=== PATIENT | male | born 1990 | race Caucasian/White ===

== ENCOUNTER 2021-05-14 11:00 | Emergency (ER) | payer OTHER, SELFPAY ==
--- NOTE | ~2021-05-14 | XR_ITS ---
EXAMINATION: XR abdomen/kub 1V INDICATION: Hematuria TECHNIQUE: Supine views of the abdomen were obtained on 2 radiographs. COMPARISON: None FINDINGS: There is a 4 mm calcification in the right pelvis which has the appearance of a phlebolith. There is a faint 2 mm calcification in the left pelvis near the expected location of the left ureter ovesicular junction. The bowel gas pattern is normal. The lung bases are clear. There is thoracolumba r levoscoliosis. IMPRESSION: 1. Possible stone in the distal left ureter. Recommend correlation for left flank pain. Reviewed, dictated and finalized at location A. IMPRESSION: 1. Possible stone in the distal left ureter. Recommend correlation for left fla nk pain.
[2021-05-14 11:04] VITALS: BP 124/74; PULSE 68; RESP 16; TEMP 37.2; O2SAT 100
[2021-05-14 11:19] VITALS: BP 124/74; PULSE 68; RESP 16; TEMP 37.2; O2SAT 100
--- NOTE | 2021-05-14 11:42 | ED.MALEGU ---
HPI - Male Genitourinary General Chief complaint: Urogenital-Male Stated complaint: poss uti Time Seen by Provider: 05/14/21 11:25 Source: patient and RN notes reviewed Mode of arrival: ambulatory Limitations: no limitations History of Present Illness HPI Narrative: Patient presents today complaining of waking up this morning with urinary urgency and pain at the tip of the penis intermittently. Patient denies dysuria, frequency, abdominal pain, hematuria. He reports some lower abdominal pain last night, but this is since resolved. He reports some nausea earlier today, but this has since resolved. Denies concerns for sexually transmitted infections. Related Data Allergies Allergy/AdvReac Type Severity Reaction Status Date / Time No Known Allergies Allergy Unknown Verified 05/14/21 11:19 Review of Systems Review of Systems: CONSTITUTIONAL: Denies body aches, fever, chills, or sweats. EYES: Denies visual changes, redness, or discharge. ENT: Denies rhinorrhea, congestion, sore throat, or otalgia. CARDIOVASCULAR: Denies chest pain, palpitations, or edema. RESPIRATORY: Denies cough or dyspnea. GASTROINTESTINAL: Denies abdominal pain, nausea, vomiting, or diarrhea. GENITOURINARY: Denies dysuria or hematuria.+ Urgency, pain at tip of penis SKIN: Denies rash, itching, or wounds. MUSCULOSKELETAL: Denies back pain, joint pain, or myalgia. NEUROLOGIC: Denies headache, numbness, tingling, or weakness. PSYCH: Denies depression or anxiety. PMFSH Comments At time of signature, I have reviewed and agree with nursing past medical, surgical, social and family history unless otherwise noted. Please see nursing chart for further information. There is no relevant family history pertinent to the presenting complaint Exam Narrative: GENERAL: Well-appearing, well-nourished, and in no acute distress. HEAD: Normocephalic, atraumatic. EYES: EOMI. No redness or drainage. Conjunctivae normal. ENT: Mucous membranes pink and moist. NECK: Normal AROM. CHEST: No respiratory distress. Clear to auscultation. HEART: Regular rate and rhythm. No murmur appreciated. Normal peripheral pulses. ABDOMEN: Soft, nontender, nondistended, normal active bowel sounds. MUSCULOSKELETAL: No bony tenderness. EXTREMITIES: Normal range of motion. No edema. SKIN: Warm, dry, no rash. Capillary refill normal. Normal skin turgor. NEURO: No focal deficits. Alert and oriented x3. Gait steady. PSYCH: Normal affect. No signs of depression or anxiety. Course Vital Signs Vital signs: Vital Signs Temperature 98.9 F 05/14/21 11:04 Pulse Rate 68 05/14/21 11:04 Respiratory Rate 16 05/14/21 11:04 Blood Pressure 124/74 05/14/21 11:04 Pulse Oximetry 100 05/14/21 11:04 Temperature 98.9 F 05/14/21 11:19 Pulse Rate 68 05/14/21 11:19 Respiratory Rate 16 05/14/21 11:19 Blood Pressure 124/74 05/14/21 11:19 Pulse Oximetry 100 05/14/21 11:19 Reviewed. Pt has been instructed to follow up with his PCP regarding his elevated blood pressure today. MDM - Male Genitourinary Differential Diagnosis Differential diagnosis: Likely urinary tract infection, urethritis and other (Kidney stone, urethral stone) Lab Data Attestation: I reviewed the patient's lab results. Labs: Urine Glucose Negative Reference Range: Negative Urine Bilirubin Negative Reference Range: Negative Urine Ketone Negative Reference Range: Negative Urine Specific [place] 1.030 Reference Range:1.001-1.035 Urine Blood 2+ Reference Range: Negative * * Urine pH 6.5
== END 2021-05-14 12:43 | disposition home or self-care (01) ==
PROVIDERS: Emergency Provider Nurse Practitioner
DX: N20.1 Calculus of ureter (principal)
CPT/HCPCS: 74018; 81003; 99213; G0463